=== PATIENT | male | born 1965 | race Caucasian/White ===

== ENCOUNTER 2018-09-11 16:26 | Inpatient (IN) | payer MEDICAID, MEDICARE ==
[2018-09-11] MEDS ORDERED: Sodium Chloride 0.9% 10 ML Syringe FLUSH PRN (16:35)
--- NOTE | 2018-09-11 16:48 | EDM.PDOCBH ---
ED HPI GENERAL MEDICAL PROBLEM - General Chief Complaint: Drug or Alcohol Abuse Stated Complaint: [facility] Time Seen by Provider: 09/11/18 16:41 Source of Information: Reports: Patient History Limitations: Reports: No Limitations - History of Present Illness INITIAL COMMENTS - FREE TEXT/NARRATIVE: Patient is a 53-year-old male who presents the ED complaining of alcohol abuse wanting alcohol treatment. Patient states he consumed 2x 40 ounce beers today. His last drink was half hour ago. Had spoken with his human services case manager with instructions to come to the ED to be admitted for inpatient treatment. Patient normally drinks beer and on occasion consumes vodka. He has been treated 5 times inpatient for alcohol. In addition he does smoke marijuana on a frequent basis. He has a history of schizoaffective disorder and is on Klonopin and Remeron. He denies any hallucinations, suicidal ideations, and/or any homicidal ideations. He has not ingested any medications inappropriately. Last treatment was 1.5 years ago at [facility]. Patient has been consuming alcohol for the past 28 years. He smokes approximately one pack per day for 28 years as well. He carries a history of anxiety and depression as well as Marfan syndrome and is on permanent disability since the age of 25. 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 - Related Data Allergies Allergy/AdvReac Type Severity Reaction Status Date / Time No Known Allergies Allergy Verified 09/11/18 19:04 Home Meds: Home Meds ClonazePAM [KlonoPIN] 0.5 mg PO BID 09/11/18 [History] DULoxetine HCl [Cymbalta] 60 mg PO DAILY 09/11/18 [History] FLUoxetine HCl [Fluoxetine HCl] 40 mg PO DAILY 09/11/18 [History] Fenofibrate,Micronized [Fenofibrate] 134 mg PO DAILY 09/11/18 [History] Levothyroxine [Synthroid] 50 mcg PO DAILY 09/11/18 [History] Lurasidone HCl [Latuda] 60 mg PO DAILY 09/11/18 [History] Meloxicam [Mobic] 15 mg PO DAILY 09/11/18 [History] Mirtazapine [Remeron] 30 mg PO BEDTIME 09/11/18 [History] Naltrexone 50 mg PO DAILY 09/11/18 [History] OLANZapine [Olanzapine] 30 mg PO BEDTIME 09/11/18 [History] Omeprazole Magnesium [Prilosec Otc] 20 mg PO DAILY 09/11/18 [History] busPIRone [Buspar] 15 mg PO BID 09/11/18 [History] cloNIDine [Catapres] 0.1 mg PO BEDTIME 09/11/18 [History] traZODone HCl [Trazodone HCl] 150 mg PO BEDTIME 09/11/18 [History] Past Medical History Respiratory History: Reports: Other (See Below) Other Respiratory History: emphysema Musculoskeletal History: Reports: Other (See Below) Other Musculoskeletal History: cervical neck surgery Psychiatric History: Reports: Anxiety, Depression - Past Surgical History GI Surgical History: Reports: Cholecystectomy Musculoskeletal Surgical History: Reports: Other (See Below) Other Musculoskeletal Surgeries/Procedures:: marfins syndrome Social & Family History - Tobacco Use Smoking Status *Q: Current Every Day Smoker Years of Tobacco use: 28 Packs/Tins Daily: 1 - Caffeine Use Caffeine Use: Reports: Coffee - Recreational Drug Use Recreational Drug Type: Reports: Marijuana/Hashish ED ROS GENERAL - Review of Systems Review Of Systems: ROS reveals no pertinent complaints other than HPI. ED EXAM, BEHAVIORAL HEALTH - Physical Exam Exam: See Below Exam Limited By: Intoxication General Appearance: Alert, WD/WN, No Apparent Distress Eye Exam: Bilateral Eye: EOMI, Normal Inspection, Nystagmus (horizontal), PERRL Ears: Hearing Grossly Normal Nose: Normal Inspection Throat/Mouth: Normal Inspection, Normal Oropharynx, Normal Voice, No Airway Compromise Head: Atraumatic, Normocephalic Neck: Normal Inspection, Supple Respiratory/Chest: No Respiratory Distress, Lungs Clear, Normal Breath Sounds, No Accessory Muscle Use, Chest Non-Tender Cardiovascular: Normal Peripheral Pulses, Regular Rate, Rhythm, No Murmur ( obvious) GI/Abdominal: Normal Bowel Sounds, Soft, Non-Tender, No Organomegaly, No Distention Extremities: Normal Inspection, Normal Range of Motion, Non-Tender, No Pedal Edema Neurological: Alert, Normal Mood/Affect, CN II-XII Intact, Normal Cognition, No Motor/Sensory Deficits, Oriented x 3 Psychiatric: Alert, Normal Affect, Normal Cognition, Normal Mood, Oriented. No : Depressed Mood, Flat Affect, Incoherent, Restless, Tearful, Agitated, Disoriented, Inattentive, Non-Communicative, Poor Eye Contact, Uncooperative, Withdrawn, Flight of Ideas, Homicidal Thoughts, Phobic, Latter-Day Delusions, Suicidal Plan, Suicidal Thoughts, Tangential Thoughts, Visual Hallucinations, Grandiose Thoughts, Pressured Speech, Paranoid Thoughts, Threatening Behavior Skin Exam: Warm, Dry, Intact, Normal color, No rash COURSE, BEHAVIORAL HEALTH COMP - Course Vital Signs: Last Vital Signs Temp 97.5 F 09/11/18 19:00 Pulse 81 09/11/18 19:00 Resp 19 09/11/18 19:00 BP 106/73 09/11/18 20:15 Pulse Ox 93 L 09/11/18 19:00 Orders, Labs, Meds: Active Orders 24 hr Category Date Time Status Peripheral IV Care [RC] Q2HR Care 09/11/18 16:35 Active Sodium Chloride 0.9% [Saline Flush] Med 09/11/18 16:35 Active 10 ml FLUSH ASDIRECTED PRN Peripheral IV Insertion Adult [OM.PC] Routine Oth 09/11/18 16:35 Ordered Medication Orders Clonazepam (Klonopin) 0.5 mg PO BID [facility] Last Admin: 09/11/18 20:15 Dose: 0.5 mg Clonidine HCl (Catapres) 0.1 mg PO BEDTIME [facility] Last Admin: 09/11/18 20:15 Dose: 0.1 mg Duloxetine HCl (Cymbalta) 60 mg PO DAILY [facility] Enoxaparin Sodium (Lovenox) 40 mg SUBCUT DAILY [facility] Fluoxetine HCl (Prozac) 40 mg PO DAILY [facility] Dextrose/Sodium Chloride (Dextrose 5%-Normal Saline) 1,000 mls @ 125 mls/hr IV ASDIRECTED [facility] Last Admin: 09/11/18 20:15 Dose: 125 mls/hr Levothyroxine Sodium (Synthroid) 50 mcg PO ACBREAKFAST [facility] Miscellaneous Information (Remove Patch) 1 ea TRDERM DAILY [facility] Nicotine (Habitrol) 21 mg TRDERM DAILY [facility] Non-Formulary Medication (Lurasidone Hcl [Latuda]) 60 mg PO DAILY [facility] Olanzapine (Zyprexa) 30 mg PO BEDTIME [facility] Last Admin: 09/11/18 20:15 Dose: 30 mg Sodium Chloride (Saline Flush) 10 ml FLUSH ASDIRECTED PRN PRN Reason: Keep Vein Open Last Admin: 09/11/18 17:00 Dose: 10 ml Trazodone HCl (Trazodone) 150 mg PO BEDTIME [facility] Last Admin: 09/11/18 20:17 Dose: 150 mg Laboratory Tests 09/11/18 09/11/18 09/11/18 Range/Units 17:00 17:00 17:00 WBC 7.40 (4.23-9.07) K/mm3 RBC 4.74 (4.63-6.08) M/mm3 Hgb 13.6 L (13.7-17.5) gm/L Hct 41.6 (40.1-51.0) % MCV 87.8 (79.0-92.2) fl MCH 28.7 (25.7-32.2) pg MCHC 32.7 (32.2-35.5) g/dl RDW Std Deviation 49.3 H (35.1-43.9) fL Plt Count 227 (163-337) K/mm3 MPV 11.2 (9.4-12.3) fl Neutrophils % (Manual) 59 (40-60) % Band Neutrophils % 0 (0-10) % Lymphocytes % (Manual) 26 (20-40) % Atypical Lymphs % 0 % Monocytes % (Manual) 11 H (2-10) % Eosinophils % (Manual) 4 (0.8-7.0) % Basophils % (Manual) 0 L (0.2-1.2) Platelet Estimate Adequate RBC Morph Comment Normal PT 10.3 (9.5-12.1) SECONDS INR 0.94 Sodium (136-145) mEq/L Potassium (3.5-5.1) mEq/L Chloride (98-107) mEq/L Carbon Dioxide (21-32) mEq/L Anion Gap (5-15) BUN (7-18) mg/dL Creatinine (0.7-1.3) mg/dL Est Cr Clr Drug Dosing mL/min Estimated GFR (MDRD) (>60) mL/min BUN/Creatinine Ratio (14-18) Glucose (74-106) mg/dL Calcium (8.5-10.1) mg/dL Total Bilirubin (0.2-1.0) mg/dL AST (15-37) U/L ALT (16-63) U/L Alkaline Phosphatase (46-116) U/L Total Protein (6.4-8.2) g/dl Albumin (3.4-5.0) g/dl Globulin gm/dL Albumin/Globulin Ratio (1-2) Lipase (73-393) U/L TSH 3rd Generation (0.358-3.74) uIU/mL Urine Color (Yellow) Urine Appearance (Clear) Urine pH (5.0-8.0) Ur Specific [place] (1.005-1.030) Urine Protein (Negative) Urine Glucose (UA) (Negative) Urine Ketones (Negative) Urine Occult Blood (Negative) Urine Nitrite (Negative) Urine Bilirubin (Negative) Urine Urobilinogen (0.2-1.0) Ur Leukocyte Esterase (Negative) Urine RBC (0-5) /hpf Urine WBC (0-5) /hpf Ur Epithelial Cells (0-5) /hpf Urine Bacteria (FEW) /hpf Urine Mucus (FEW) /hpf Salicylates (2.8-20) mg/dL Urine Opiates Screen Negative (BOFGWM=630) Ur Buprenorphine Scrn Negative (CUTOFF=10) Ur Oxycodone Screen Negative (MFG9TB=440) Urine Methadone Screen Negative (GPF9DL=565) Ur Propoxyphene Screen Negative (KDCJTY=729) Acetaminophen (10-30) ug/mL Ur Barbiturates Screen Negative (PTLJKX=367) Ur Tricyclics Screen Negative (IGMMYD=129) Ur Phencyclidine Scrn Negative (CUTOFF=25) Ur Amphetamine Screen Negative (RKFJFC=360) U Methamphetamines Scrn Negative (TSRYZQ=079) U Benzodiazepines Scrn Negative (ZNNFNX=079) U Cocaine Metab Screen Negative (KJZRTP=078) U Marijuana (THC) Screen Negative (CUTOFF=50) Ethyl Alcohol (0.00) gm% 09/11/18 09/11/18 09/11/18 Range/Units 17:00 17:00 17:00 WBC (4.23-9.07) K/mm3 RBC (4.63-6.08) M/mm3 Hgb (13.7-17.5) gm/L Hct (40.1-51.0) % MCV (79.0-92.2) fl MCH (25.7-32.2) pg MCHC (32.2-35.5) g/dl RDW Std Deviation (35.1-43.9) fL Plt Count (163-337) K/mm3 MPV (9.4-12.3) fl Neutrophils % (Manual) (40-60) % Band Neutrophils % (0-10) % Lymphocytes % (Manual) (20-40) % Atypical Lymphs % % Monocytes % (Manual) (2-10) % Eosinophils % (Manual) (0.8-7.0) % Basophils % (Manual) (0.2-1.2) Platelet Estimate RBC Morph Comment PT (9.5-12.1) SECONDS INR Sodium 139 (136-145) mEq/L Potassium 3.7 (3.5-5.1) mEq/L Chloride 102 (98-107) mEq/L Carbon Dioxide 24 (21-32) mEq/L Anion Gap 16.7 H (5-15) BUN 14 (7-18) mg/dL Creatinine 1.1 (0.7-1.3) mg/dL Est Cr Clr Drug Dosing 84.61 mL/min Estimated GFR (MDRD) > 60 (>60) mL/min BUN/Creatinine Ratio 12.7 L (14-18) Glucose 91 (74-106) mg/dL Calcium 8.7 (8.5-10.1) mg/dL Total Bilirubin 0.2 (0.2-1.0) mg/dL AST 27 (15-37) U/L ALT 33 (16-63) U/L Alkaline Phosphatase 91 (46-116) U/L Total Protein 7.3 (6.4-8.2) g/dl Albumin 3.7 (3.4-5.0) g/dl Globulin 3.6 gm/dL Albumin/Globulin Ratio 1.0 (1-2) Lipase 164 (73-393) U/L TSH 3rd Generation 1.454 (0.358-3.74) uIU/mL Urine Color Yellow (Yellow) Urine Appearance Clear (Clear) Urine pH 6.5 (5.0-8.0) Ur Specific [place] <=1.005 (1.005-1.030) Urine Protein Negative (Negative) Urine Glucose (UA) Negative (Negative) Urine Ketones Negative (Negative) Urine Occult Blood Negative (Negative) Urine Nitrite Negative (Negative) Urine Bilirubin Negative (Negative) Urine Urobilinogen 0.2 (0.2-1.0) Ur Leukocyte Esterase Negative (Negative) Urine RBC 0-5 (0-5) /hpf Urine WBC 0-5 (0-5) /hpf Ur Epithelial Cells 0-5 (0-5) /hpf Urine Bacteria Few (FEW) /hpf Urine Mucus Few (FEW) /hpf Salicylates 3.5 (2.8-20) mg/dL Urine Opiates Screen (KZWNMS=269) Ur Buprenorphine Scrn (CUTOFF=10) Ur Oxycodone Screen (DZM7MT=993) Urine Methadone Screen (CDL1IL=241) Ur Propoxyphene Screen (VAIZQF=541) Acetaminophen 0 L (10-30) ug/mL Ur Barbiturates Screen (QWDLKR=197) Ur Tricyclics Screen (FZBGSL=990) Ur Phencyclidine Scrn (CUTOFF=25) Ur Amphetamine Screen (UDORHP=498) U Methamphetamines Scrn (IGVRVN=432) U Benzodiazepines Scrn (CDFCFY=110) U Cocaine Metab Screen (LTIEKZ=026) U Marijuana (THC) Screen (CUTOFF=50) Ethyl Alcohol 0.24 (0.00) gm% Medications Generic Name Dose Route Start Last Admin Trade Name Freq PRN Reason Stop Dose Admin Clonazepam 0.5 mg 09/11/18 21:00 09/11/18 20:15 Klonopin PO 0.5 mg BID [facility] Administration Clonidine HCl 0.1 mg 09/11/18 21:00 09/11/18 20:15 Catapres PO 0.1 mg BEDTIME [facility] Administration Duloxetine HCl 60 mg 09/12/18 09:00 Cymbalta PO DAILY [facility] Enoxaparin Sodium 40 mg 09/12/18 09:00 Lovenox SUBCUT DAILY [facility] Fluoxetine HCl 40 mg 09/12/18 09:00 Prozac PO DAILY [facility] Dextrose/Sodium Chloride 1,000 mls @ 125 mls/hr 09/11/18 19:45 09/11/18 20:15 Dextrose 5%-Normal Saline IV 125 mls/hr ASDIRECTED [facility] Administration Levothyroxine Sodium 50 mcg 09/12/18 06:00 Synthroid PO ACBREAKFAST [facility] Miscellaneous Information 1 ea 09/12/18 09:00 Remove Patch TRDERM DAILY [facility] Nicotine 21 mg 09/12/18 09:00 Habitrol TRDERM DAILY [facility] Non-Formulary Medication 60 mg 09/12/18 09:00 Lurasidone Hcl [Latuda] PO DAILY [facility] Olanzapine 30 mg 09/11/18 21:00 09/11/18 20:15 Zyprexa PO 30 mg BEDTIME [facility] Administration Sodium Chloride 10 ml 09/11/18 16:35 09/11/18 17:00 Saline Flush FLUSH 10 ml ASDIRECTED PRN Administration Keep Vein Open Trazodone HCl 150 mg 09/11/18 21:00 09/11/18 20:17 Trazodone PO 150 mg BEDTIME [facility] Administration Discontinued Medications Generic Name Dose Route Start Last Admin Trade Name Rickie PRN Reason Stop Dose Admin Folic Acid 1 mg 09/11/18 16:53 09/11/18 17:10 Folic Acid PO 09/11/18 16:54 1 mg ONETIME ONE Administration Sodium Chloride 1,000 mls @ 250 mls/hr 09/11/18 17:00 09/11/18 17:10 Normal Saline IV 250 mls/hr ASDIRECTED [facility] Administration Nicotine 21 mg 09/11/18 18:07 09/11/18 18:23 Habitrol TRDERM 09/11/18 18:08 21 mg ONETIME ONE Administration Thiamine HCl 100 mg 09/11/18 16:53 09/11/18 17:04 Vitamin B-1 IVPUSH 09/11/18 16:54 100 mg ONETIME ONE Administration Re-Assessment/Re-Exam: IV established with normal saline, thiamine 100 mg IV, and folic acid by mouth. Initial labs and studies include: CBC, CMP, urine drug screen, lipase, INR, TSH , UA, see mid-level, serum EtOH, salicylate level, and EKG. EKG: SR rate of [address] changes noted. 1645 I was advised by the railroad dining car stewardess that [facility] has a bed available. I will not be able to medically clear patient for [facility]. I will look at admitting patient. Labs reviewed: CBC and chemistry panel revealed no concerning findings. UA negative. Toxicology was negative. Acetaminophen 0. Salicylate is pending. Serum EtOH 0.24. Lipase 164. TSH 1.454. INR 0.94. 1810 I have discussed the patient with Dr. Fox. He has agreed to admit the patient. Departure - Departure Time of Disposition: 18:13 Disposition: Admitted As Inpatient 68 Condition: Good Clinical Impression: Alcohol abuse - Discharge Information - My Orders Last 24 Hours: My Active Orders 09/11/18 16:35 Peripheral IV Care [RC] Q2HR Sodium Chloride 0.9% [Saline Flush] 10 ml FLUSH ASDIRECTED PRN Peripheral IV Insertion Adult [OM.PC] Routine - Assessment/Plan Last 24 Hours: My Active Orders 09/11/18 16:35 Peripheral IV Care [RC] Q2HR Sodium Chloride 0.9% [Saline Flush] 10 ml FLUSH ASDIRECTED PRN Peripheral IV Insertion Adult [OM.PC] Routine
[2018-09-11] MEDS ORDERED: Thiamine 200 MG/2 ML MDV IVPUSH ONE (16:53)
[2018-09-11] MEDS ORDERED: Folic Acid 1 MG Tab PO ONE (16:53)
[2018-09-11] MEDS ORDERED: Sodium Chloride 0.9% 1,000 ML IV SCH (17:00)
[2018-09-11 17:55] LABS: ACETAMINOPHEN 0 ug/mL (10-30)
[2018-09-11] MEDS ORDERED: Nicotine 21 MG/24 Hr Patch TRDERM ONE (18:07)
--- NOTE | 2018-09-11 19:39 | PCM.HP ---
H&P History of Present Illness - General Date of Service: 09/11/18 Admit Problem/Dx: Admission Diagnosis/Problem Admission Diagnosis/Problem Alcoholism - History of Present Illness Initial Comments - Free Text/Narative: 53 yo WM with h/o anxiety, depression, alcoholism admitted through ED with inebriation, requesting admission for "detox". Binge drinks 2-3 times a month. Admitted for further treatment. - Related Data Allergies/Adverse Reactions: Allergies Allergy/AdvReac Type Severity Reaction Status Date / Time No Known Allergies Allergy Verified 09/11/18 19:04 Home Medications: Home Meds ClonazePAM [KlonoPIN] 0.5 mg PO BID 09/11/18 [History] DULoxetine HCl [Cymbalta] 60 mg PO DAILY 09/11/18 [History] FLUoxetine HCl [Fluoxetine HCl] 40 mg PO DAILY 09/11/18 [History] Fenofibrate,Micronized [Fenofibrate] 134 mg PO DAILY 09/11/18 [History] Levothyroxine [Synthroid] 50 mcg PO DAILY 09/11/18 [History] Lurasidone HCl [Latuda] 60 mg PO DAILY 09/11/18 [History] Meloxicam [Mobic] 15 mg PO DAILY 09/11/18 [History] Mirtazapine [Remeron] 30 mg PO BEDTIME 09/11/18 [History] Naltrexone 50 mg PO DAILY 09/11/18 [History] OLANZapine [Olanzapine] 30 mg PO BEDTIME 09/11/18 [History] Omeprazole Magnesium [Prilosec Otc] 20 mg PO DAILY 09/11/18 [History] busPIRone [Buspar] 15 mg PO BID 09/11/18 [History] cloNIDine [Catapres] 0.1 mg PO BEDTIME 09/11/18 [History] traZODone HCl [Trazodone HCl] 150 mg PO BEDTIME 09/11/18 [History] Past Medical History Respiratory History: Reports: Other (See Below) Other Respiratory History: emphysema Musculoskeletal History: Reports: Other (See Below) Other Musculoskeletal History: cervical neck surgery Psychiatric History: Reports: Anxiety, Depression - Past Surgical History GI Surgical History: Reports: Cholecystectomy Musculoskeletal Surgical History: Reports: Other (See Below) Other Musculoskeletal Surgeries/Procedures:: marfins syndrome Social & Family History - Tobacco Use Smoking Status *Q: Current Every Day Smoker Years of Tobacco use: 28 Packs/Tins Daily: 1 - Caffeine Use Caffeine Use: Reports: Coffee - Recreational Drug Use Recreational Drug Type: Reports: Marijuana/Hashish H&P Review of Systems - Review of Systems: Review Of Systems: See Below General: Denies: Fever, Chills HEENT: Denies: Dysphasia, Headaches Pulmonary: Denies: Shortness of Breath, Cough, Hemoptysis Cardiovascular: Denies: Chest Pain, Palpitations Gastrointestinal: Denies: Abdominal Pain, Diarrhea, Nausea Genitourinary: Denies: Dysuria, Frequency Skin: Denies: Cyanosis, Jaundice Psychiatric: Reports: Depression, Anxiety Hematologic/Lymphatic: Denies: Easy Bleeding, Easy Bruising Exam - Exam Exam: See Below - Vital Signs Vital Signs: Last Vital Signs Temp 97.5 F 09/11/18 19:00 Pulse 81 09/11/18 19:00 Resp 19 09/11/18 19:00 BP 123/76 09/11/18 19:00 Pulse Ox 93 L 09/11/18 19:00 Weight: 165 lb 9.6 oz - Exam Quality Assessment: No: Supplemental Oxygen General: Alert, Oriented, Cooperative, Lethargic HEENT: Conjunctiva Clear, EOMI Neck: Supple, Trachea Midline Lungs: Clear to Auscultation, Normal Respiratory Effort Cardiovascular: Regular Rate, Regular Rhythm GI/Abdominal Exam: Soft, Non-Tender Extremities: Non-Tender, Pedal Edema Peripheral Pulses: 2+: Dorsalis Pedis (L), Dorsalis Pedis (R) Skin: Warm, Dry Neuro Extensive - Mental Status: No: Normal Cognition, Disorientation to Time, Inattentive Neuro Extensive - Motor, Sensory, Reflexes: CN II-XII Intact, Normal Gait. No: Motor/Sensory Deficits - Patient Data Lab Results Last 24 hrs: Laboratory Results - last 24 hr 09/11/18 09/11/18 09/11/18 Range/Units 17:00 17:00 17:00 WBC 7.40 (4.23-9.07) K/mm3 RBC 4.74 (4.63-6.08) M/mm3 Hgb 13.6 L (13.7-17.5) gm/L Hct 41.6 (40.1-51.0) % MCV 87.8 (79.0-92.2) fl MCH 28.7 (25.7-32.2) pg MCHC 32.7 (32.2-35.5) g/dl RDW Std Deviation 49.3 H (35.1-43.9) fL Plt Count 227 (163-337) K/mm3 MPV 11.2 (9.4-12.3) fl Neutrophils % (Manual) 59 (40-60) % Band Neutrophils % 0 (0-10) % Lymphocytes % (Manual) 26 (20-40) % Atypical Lymphs % 0 % Monocytes % (Manual) 11 H (2-10) % Eosinophils % (Manual) 4 (0.8-7.0) % Basophils % (Manual) 0 L (0.2-1.2) Platelet Estimate Adequate RBC Morph Comment Normal PT 10.3 (9.5-12.1) SECONDS INR 0.94 Sodium (136-145) mEq/L Potassium (3.5-5.1) mEq/L Chloride (98-107) mEq/L Carbon Dioxide (21-32) mEq/L Anion Gap (5-15) BUN (7-18) mg/dL Creatinine (0.7-1.3) mg/dL Est Cr Clr Drug Dosing mL/min Estimated GFR (MDRD) (>60) mL/min BUN/Creatinine Ratio (14-18) Glucose (74-106) mg/dL Calcium (8.5-10.1) mg/dL Total Bilirubin (0.2-1.0) mg/dL AST (15-37) U/L ALT (16-63) U/L Alkaline Phosphatase (46-116) U/L Total Protein (6.4-8.2) g/dl Albumin (3.4-5.0) g/dl Globulin gm/dL Albumin/Globulin Ratio (1-2) Lipase (73-393) U/L TSH 3rd Generation (0.358-3.74) uIU/mL Urine Color (Yellow) Urine Appearance (Clear) Urine pH (5.0-8.0) Ur Specific Cassatt (1.005-1.030) Urine Protein (Negative) Urine Glucose (UA) (Negative) Urine Ketones (Negative) Urine Occult Blood (Negative) Urine Nitrite (Negative) Urine Bilirubin (Negative) Urine Urobilinogen (0.2-1.0) Ur Leukocyte Esterase (Negative) Urine RBC (0-5) /hpf Urine WBC (0-5) /hpf Ur Epithelial Cells (0-5) /hpf Urine Bacteria (FEW) /hpf Urine Mucus (FEW) /hpf Salicylates (2.8-20) mg/dL Urine Opiates Screen Negative (UETREF=095) Ur Buprenorphine Scrn Negative (CUTOFF=10) Ur Oxycodone Screen Negative (FZI9FX=989) Urine Methadone Screen Negative (MRZ0LH=761) Ur Propoxyphene Screen Negative (XFMGDB=010) Acetaminophen (10-30) ug/mL Ur Barbiturates Screen Negative (ICIOVE=864) Ur Tricyclics Screen Negative (DAKWKB=280) Ur Phencyclidine Scrn Negative (CUTOFF=25) Ur Amphetamine Screen Negative (IAMOTR=826) U Methamphetamines Scrn Negative (BKPSOX=110) U Benzodiazepines Scrn Negative (VURTCY=139) U Cocaine Metab Screen Negative (XFQXSY=035) U Marijuana (THC) Screen Negative (CUTOFF=50) Ethyl Alcohol (0.00) gm% 09/11/18 09/11/18 09/11/18 Range/Units 17:00 17:00 17:00 WBC (4.23-9.07) K/mm3 RBC (4.63-6.08) M/mm3 Hgb (13.7-17.5) gm/L Hct (40.1-51.0) % MCV (79.0-92.2) fl MCH (25.7-32.2) pg MCHC (32.2-35.5) g/dl RDW Std Deviation (35.1-43.9) fL Plt Count (163-337) K/mm3 MPV (9.4-12.3) fl Neutrophils % (Manual) (40-60) % Band Neutrophils % (0-10) % Lymphocytes % (Manual) (20-40) % Atypical Lymphs % % Monocytes % (Manual) (2-10) % Eosinophils % (Manual) (0.8-7.0) % Basophils % (Manual) (0.2-1.2) Platelet Estimate RBC Morph Comment PT (9.5-12.1) SECONDS INR Sodium 139 (136-145) mEq/L Potassium 3.7 (3.5-5.1) mEq/L Chloride 102 (98-107) mEq/L Carbon Dioxide 24 (21-32) mEq/L Anion Gap 16.7 H (5-15) BUN 14 (7-18) mg/dL Creatinine 1.1 (0.7-1.3) mg/dL Est Cr Clr Drug Dosing 84.61 mL/min Estimated GFR (MDRD) > 60 (>60) mL/min BUN/Creatinine Ratio 12.7 L (14-18) Glucose 91 (74-106) mg/dL Calcium 8.7 (8.5-10.1) mg/dL Total Bilirubin 0.2 (0.2-1.0) mg/dL AST 27 (15-37) U/L ALT 33 (16-63) U/L Alkaline Phosphatase 91 (46-116) U/L Total Protein 7.3 (6.4-8.2) g/dl Albumin 3.7 (3.4-5.0) g/dl Globulin 3.6 gm/dL Albumin/Globulin Ratio 1.0 (1-2) Lipase 164 (73-393) U/L TSH 3rd Generation 1.454 (0.358-3.74) uIU/mL Urine Color Yellow (Yellow) Urine Appearance Clear (Clear) Urine pH 6.5 (5.0-8.0) Ur Specific Cassatt <=1.005 (1.005-1.030) Urine Protein Negative (Negative) Urine Glucose (UA) Negative (Negative) Urine Ketones Negative (Negative) Urine Occult Blood Negative (Negative) Urine Nitrite Negative (Negative) Urine Bilirubin Negative (Negative) Urine Urobilinogen 0.2 (0.2-1.0) Ur Leukocyte Esterase Negative (Negative) Urine RBC 0-5 (0-5) /hpf Urine WBC 0-5 (0-5) /hpf Ur Epithelial Cells 0-5 (0-5) /hpf Urine Bacteria Few (FEW) /hpf Urine Mucus Few (FEW) /hpf Salicylates 3.5 (2.8-20) mg/dL Urine Opiates Screen (AMYYBD=965) Ur Buprenorphine Scrn (CUTOFF=10) Ur Oxycodone Screen (JQJ5XA=603) Urine Methadone Screen (CXH1UP=608) Ur Propoxyphene Screen (JYMDXD=762) Acetaminophen 0 L (10-30) ug/mL Ur Barbiturates Screen (UOEXRT=468) Ur Tricyclics Screen (XLDSGY=320) Ur Phencyclidine Scrn (CUTOFF=25) Ur Amphetamine Screen (EMKPKA=133) U Methamphetamines Scrn (DUCYUL=177) U Benzodiazepines Scrn (ODXNLE=720) U Cocaine Metab Screen (TBKVNS=535) U Marijuana (THC) Screen (CUTOFF=50) Ethyl Alcohol 0.24 (0.00) gm% Result Diagrams: 09/11/18 17:00 09/11/18 17:00 - Problem List (1) Alcohol abuse SNOMED Code(s): 29605809 ICD Code: F10.10 - ALCOHOL ABUSE, UNCOMPLICATED Status: Acute Current Visit: No (2) Depression SNOMED Code(s): 24945142 ICD Code: F32.9 - MAJOR DEPRESSIVE DISORDER, SINGLE EPISODE, UNSPECIFIED Status: Acute Current Visit: Yes Qualifiers: Depression Type: major depressive disorder Major depression recurrence: recurrent Active/Remission status: currently active Major depression episode severity: severe Psychotic features: with psychotic features Qualified Code(s): F33.3 - Major depressive disorder, recurrent, severe with psychotic symptoms Problem List Initiated/Reviewed/Updated: Yes Orders Last 24hrs: Active Orders 24 hr Category Date Time Status Admission Status [Patient Status] [ADT] Routine ADT 09/11/18 18:16 Active Bedrest Bathroom Privileges [RC] ASDIRECTED Care 09/11/18 19:30 Ordered Cardiac Monitoring [RC] CONTINUOUS Care 09/11/18 19:30 Ordered Height and Weight [RC] DAILY Care 09/11/18 19:30 Ordered Peripheral IV Care [RC] Q2HR Care 09/11/18 16:35 Active VTE/DVT Education [RC] PER UNIT ROUTINE Care 09/11/18 19:30 Ordered Vital Signs [RC] Q4H Care 09/11/18 19:30 Ordered Regular Diet [DIET] Diet 09/11/18 Breakfast Ordered ClonazePAM [KlonoPIN] Med 09/11/18 21:00 Ordered 0.5 mg PO BID DULoxetine HCl Med 09/12/18 09:00 Ordered 60 mg PO DAILY Enoxaparin [Lovenox] Med 09/12/18 09:00 Ordered 40 mg SUBCUT DAILY FLUoxetine HCl [Fluoxetine HCl] Med 09/12/18 09:00 Ordered 40 mg PO DAILY Levothyroxine [Synthroid] Med 09/12/18 09:00 Ordered 50 mcg PO DAILY Lurasidone HCl [Latuda] Med 09/12/18 09:00 Ordered 60 mg PO DAILY Nicotine [Habitrol] Med 09/12/18 09:00 Ordered 21 mg TRDERM DAILY OLANZapine [Olanzapine] Med 09/11/18 21:00 Ordered 30 mg PO BEDTIME Sodium Chloride 0.9% [Normal Saline] 1,000 ml Med 09/11/18 17:00 Active IV ASDIRECTED Sodium Chloride 0.9% [Saline Flush] Med 09/11/18 16:35 Active 10 ml FLUSH ASDIRECTED PRN cloNIDine [Catapres] Med 09/11/18 21:00 Ordered 0.1 mg PO BEDTIME traZODone HCl [Trazodone HCl] Med 09/11/18 21:00 Ordered 150 mg PO BEDTIME Peripheral IV Insertion Adult [OM.PC] Routine Oth 09/11/18 16:35 Ordered Resuscitation Status Routine Resus Stat 09/11/18 19:30 Ordered Medication Orders Clonazepam (Klonopin) 0.5 mg PO BID BREN Clonidine HCl (Catapres) 0.1 mg PO BEDTIME BREN Enoxaparin Sodium (Lovenox) 40 mg SUBCUT DAILY BREN Sodium Chloride (Normal Saline) 1,000 mls @ 250 mls/hr IV ASDIRECTED BREN Last Admin: 09/11/18 17:10 Dose: 250 mls/hr Levothyroxine Sodium (Synthroid) 50 mcg PO DAILY BREN Nicotine (Habitrol) 21 mg TRDERM DAILY BREN Non-Formulary Medication (Duloxetine Hcl) 60 mg PO DAILY BREN Non-Formulary Medication (Fluoxetine Hcl [Fluoxetine Hcl]) 40 mg PO DAILY BREN Non-Formulary Medication (Lurasidone Hcl [Latuda]) 60 mg PO DAILY BREN Non-Formulary Medication (Olanzapine [Olanzapine]) 30 mg PO BEDTIME BREN Non-Formulary Medication (Trazodone Hcl [Trazodone Hcl]) 150 mg PO BEDTIME BREN Sodium Chloride (Saline Flush) 10 ml FLUSH ASDIRECTED PRN PRN Reason: Keep Vein Open Last Admin: 09/11/18 17:00 Dose: 10 ml Assessment/Plan Comment:: 1. IVF, benzos, continue home RX. 2. Monitor electrolytes. 3. SS consult. 4. DVTP - LMWH.
[2018-09-11] MEDS: Dextrose 5%-0.9% NaCl 1,000 ML IV SCH (20:15)
[2018-09-11] MEDS: ClonazePAM 0.5 MG Tab PO SCH (20:15)
[2018-09-11] MEDS ORDERED: traZODone 50 MG Tab PO SCH (21:00)
[2018-09-11] MEDS ORDERED: cloNIDine 0.1 MG Tab PO SCH (21:00)
[2018-09-11] MEDS ORDERED: OLANZapine 5 MG Tab PO SCH (21:00)
[2018-09-12] MEDS: Dextrose 5%-0.9% NaCl 1,000 ML IV SCH (04:43)
[2018-09-12] MEDS ORDERED: Levothyroxine 50 MCG Tab PO SCH (06:00)
[2018-09-12] MEDS ORDERED: Magnesium Sulfate/Water 2 GM in Premix Bag 1 BAG IV ONE (07:18)
[2018-09-12] MEDS: ClonazePAM 0.5 MG Tab PO SCH (08:14)
[2018-09-12] MEDS ORDERED: Lurasidone Hcl [Latuda] 60 MG PO SCH (09:00)
[2018-09-12] MEDS ORDERED: Nicotine 21 MG/24 Hr Patch TRDERM SCH (09:00)
[2018-09-12] MEDS ORDERED: Enoxaparin 40 MG/0.4 ML Syringe SUBCUT SCH (09:00)
[2018-09-12] MEDS ORDERED: FLUoxetine 20 MG Cap PO SCH (09:00)
[2018-09-12] MEDS ORDERED: DULoxetine 30 MG Cap PO SCH (09:00)
--- NOTE | 2018-09-12 12:20 | PCM.DCSUM1 ---
Discharge Summary - Hospital Course Free Text/Narrative:: 53 yo WM with h/o anxiety, depression, alcoholism admitted through ED with inebriation, requesting admission for "detox". Binge drinks 2-3 times a month. Admitted for further treatment. 09/12/18, has no recollection of why he called an ambulance, wishes to go home, no withdrawal symptoms, counselor visited and follow up arranged. Being discharged in good condition. Recommendations: per patient, the only Rx that helped him to stay sober was Antabuse. He states that naltrexone has no effect and interferes with his pain control after spinal surgery. May benefit from discussion with the psychiatrist regarding Antabuse treatment on the next upcoming appointment. Diagnosis: Stroke: No - Discharge Data Discharge Date: 09/12/18 Discharge Disposition: Home, Self-Care 01 Condition: Good - Discharge Diagnosis/Problem(s) (1) Alcohol abuse SNOMED Code(s): 32748610 ICD Code: F10.10 - ALCOHOL ABUSE, UNCOMPLICATED Status: Acute Current Visit: No (2) Depression SNOMED Code(s): 23006120 ICD Code: F32.9 - MAJOR DEPRESSIVE DISORDER, SINGLE EPISODE, UNSPECIFIED Status: Acute Current Visit: Yes Qualifiers: Depression Type: major depressive disorder Major depression recurrence: recurrent Active/Remission status: currently active Major depression episode severity: severe Psychotic features: with psychotic features Qualified Code(s): F33.3 - Major depressive disorder, recurrent, severe with psychotic symptoms - Patient Instructions Diet: Heart Healthy Diet Activity: As Tolerated Showering/Bathing: May Shower - Discharge Plan *PRESCRIPTION DRUG MONITORING PROGRAM REVIEWED*: No *COPY OF PRESCRIPTION DRUG MONITORING REPORT IN PATIENT MIKY: No Home Medications: Home Meds DULoxetine HCl [Cymbalta] 60 mg PO DAILY 09/11/18 [History] FLUoxetine HCl [Fluoxetine HCl] 40 mg PO DAILY 09/11/18 [History] Fenofibrate,Micronized [Fenofibrate] 134 mg PO DAILY 09/11/18 [History] Levothyroxine [Synthroid] 50 mcg PO DAILY 09/11/18 [History] Lurasidone HCl [Latuda] 60 mg PO DAILY 09/11/18 [History] Meloxicam [Mobic] 15 mg PO DAILY 09/11/18 [History] Mirtazapine [Remeron] 30 mg PO BEDTIME 09/11/18 [History] Naltrexone 50 mg PO DAILY 09/11/18 [History] OLANZapine [Olanzapine] 30 mg PO BEDTIME 09/11/18 [History] Omeprazole Magnesium [Prilosec Otc] 20 mg PO DAILY 09/11/18 [History] busPIRone [Buspar] 15 mg PO BID 09/11/18 [History] cloNIDine [Catapres] 0.1 mg PO BEDTIME 09/11/18 [History] traZODone HCl [Trazodone HCl] 150 mg PO BEDTIME 09/11/18 [History] Patient's Own Medication [Ptom] 0 each PO DAILY each 09/12/18 [Rx] Referrals: Dallin Lance Jr, MD [Primary Care Provider] - - Discharge Summary/Plan Comment DC Time >30 min.: No - Patient Data Vitals - Most Recent: Last Vital Signs Temp 98 F 09/12/18 11:54 Pulse 92 09/12/18 11:54 Resp 19 09/12/18 11:54 BP 125/77 09/12/18 11:54 Pulse Ox 93 L 09/12/18 11:54 Weight - Most Recent: 165 lb 9.6 oz I&O - Last 24 hours: Intake & Output 09/12/18 09/12/18 09/12/18 03:59 11:59 19:59 Intake Total 1170 Balance 1170 Lab Results - Last 24 hrs: Laboratory Results - last 24 hr 09/11/18 09/11/18 09/11/18 Range/Units 17:00 17:00 17:00 WBC 7.40 (4.23-9.07) K/mm3 RBC 4.74 (4.63-6.08) M/mm3 Hgb 13.6 L (13.7-17.5) gm/L Hct 41.6 (40.1-51.0) % MCV 87.8 (79.0-92.2) fl MCH 28.7 (25.7-32.2) pg MCHC 32.7 (32.2-35.5) g/dl RDW Std Deviation 49.3 H (35.1-43.9) fL Plt Count 227 (163-337) K/mm3 MPV 11.2 (9.4-12.3) fl Neut % (Auto) (34.0-67.9) % Lymph % (Auto) (21.8-53.1) % [place] % (Auto) (5.3-12.2) % Eos % (Auto) (0.8-7.0) Baso % (Auto) (0.1-1.2) % Neut # (Auto) (1.78-5.38) K/mm3 Lymph # (Auto) (1.32-3.57) K/mm3 [place] # (Auto) (0.30-0.82) K/mm3 Eos # (Auto) (0.04-0.54) K/mm3 Baso # (Auto) (0.01-0.08) K/mm3 Neutrophils % (Manual) 59 (40-60) % Band Neutrophils % 0 (0-10) % Lymphocytes % (Manual) 26 (20-40) % Atypical Lymphs % 0 % Monocytes % (Manual) 11 H (2-10) % Eosinophils % (Manual) 4 (0.8-7.0) % Basophils % (Manual) 0 L (0.2-1.2) Platelet Estimate Adequate RBC Morph Comment Normal PT 10.3 (9.5-12.1) SECONDS INR 0.94 Sodium (136-145) mEq/L Potassium (3.5-5.1) mEq/L Chloride (98-107) mEq/L Carbon Dioxide (21-32) mEq/L Anion Gap (5-15) BUN (7-18) mg/dL Creatinine (0.7-1.3) mg/dL Est Cr Clr Drug Dosing mL/min Estimated GFR (MDRD) (>60) mL/min BUN/Creatinine Ratio (14-18) Glucose (74-106) mg/dL Calcium (8.5-10.1) mg/dL Phosphorus (2.6-4.7) mg/dL Magnesium (1.8-2.4) mg/dl Total Bilirubin (0.2-1.0) mg/dL AST (15-37) U/L ALT (16-63) U/L Alkaline Phosphatase (46-116) U/L Total Protein (6.4-8.2) g/dl Albumin (3.4-5.0) g/dl Globulin gm/dL Albumin/Globulin Ratio (1-2) Lipase (73-393) U/L TSH 3rd Generation (0.358-3.74) uIU/mL Urine Color (Yellow) Urine Appearance (Clear) Urine pH (5.0-8.0) Ur Specific [place] (1.005-1.030) Urine Protein (Negative) Urine Glucose (UA) (Negative) Urine Ketones (Negative) Urine Occult Blood (Negative) Urine Nitrite (Negative) Urine Bilirubin (Negative) Urine Urobilinogen (0.2-1.0) Ur Leukocyte Esterase (Negative) Urine RBC (0-5) /hpf Urine WBC (0-5) /hpf Ur Epithelial Cells (0-5) /hpf Urine Bacteria (FEW) /hpf Urine Mucus (FEW) /hpf Salicylates (2.8-20) mg/dL Urine Opiates Screen Negative (PCMPOC=899) Ur Buprenorphine Scrn Negative (CUTOFF=10) Ur Oxycodone Screen Negative (ISH6YH=175) Urine Methadone Screen Negative (SPV4LM=047) Ur Propoxyphene Screen Negative (WBQSGN=504) Acetaminophen (10-30) ug/mL Ur Barbiturates Screen Negative (RCMTMJ=637) Ur Tricyclics Screen Negative (NMVMHX=034) Ur Phencyclidine Scrn Negative (CUTOFF=25) Ur Amphetamine Screen Negative (AUZUJR=245) U Methamphetamines Scrn Negative (USSIFC=259) U Benzodiazepines Scrn Negative (ABDVYB=481) U Cocaine Metab Screen Negative (PBYODJ=185) U Marijuana (THC) Screen Negative (CUTOFF=50) Ethyl Alcohol (0.00) gm% 09/11/18 09/11/18 09/11/18 Range/Units 17:00 17:00 17:00 WBC (4.23-9.07) K/mm3 RBC (4.63-6.08) M/mm3 Hgb (13.7-17.5) gm/L Hct (40.1-51.0) % MCV (79.0-92.2) fl MCH (25.7-32.2) pg MCHC (32.2-35.5) g/dl RDW Std Deviation (35.1-43.9) fL Plt Count (163-337) K/mm3 MPV (9.4-12.3) fl Neut % (Auto) (34.0-67.9) % Lymph % (Auto) (21.8-53.1) % [place] % (Auto) (5.3-12.2) % Eos % (Auto) (0.8-7.0) Baso % (Auto) (0.1-1.2) % Neut # (Auto) (1.78-5.38) K/mm3 Lymph # (Auto) (1.32-3.57) K/mm3 [place] # (Auto) (0.30-0.82) K/mm3 Eos # (Auto) (0.04-0.54) K/mm3 Baso # (Auto) (0.01-0.08) K/mm3 Neutrophils % (Manual) (40-60) % Band Neutrophils % (0-10) % Lymphocytes % (Manual) (20-40) % Atypical Lymphs % % Monocytes % (Manual) (2-10) % Eosinophils % (Manual) (0.8-7.0) % Basophils % (Manual) (0.2-1.2) Platelet Estimate RBC Morph Comment PT (9.5-12.1) SECONDS INR Sodium 139 (136-145) mEq/L Potassium 3.7 (3.5-5.1) mEq/L Chloride 102 (98-107) mEq/L Carbon Dioxide 24 (21-32) mEq/L Anion Gap 16.7 H (5-15) BUN 14 (7-18) mg/dL Creatinine 1.1 (0.7-1.3) mg/dL Est Cr Clr Drug Dosing 84.61 mL/min Estimated GFR (MDRD) > 60 (>60) mL/min BUN/Creatinine Ratio 12.7 L (14-18) Glucose 91 (74-106) mg/dL Calcium 8.7 (8.5-10.1) mg/dL Phosphorus (2.6-4.7) mg/dL Magnesium (1.8-2.4) mg/dl Total Bilirubin 0.2 (0.2-1.0) mg/dL AST 27 (15-37) U/L ALT 33 (16-63) U/L Alkaline Phosphatase 91 (46-116) U/L Total Protein 7.3 (6.4-8.2) g/dl Albumin 3.7 (3.4-5.0) g/dl Globulin 3.6 gm/dL Albumin/Globulin Ratio 1.0 (1-2) Lipase 164 (73-393) U/L TSH 3rd Generation 1.454 (0.358-3.74) uIU/mL Urine Color Yellow (Yellow) Urine Appearance Clear (Clear) Urine pH 6.5 (5.0-8.0) Ur Specific [place] <=1.005 (1.005-1.030) Urine Protein Negative (Negative) Urine Glucose (UA) Negative (Negative) Urine Ketones Negative (Negative) Urine Occult Blood Negative (Negative) Urine Nitrite Negative (Negative) Urine Bilirubin Negative (Negative) Urine Urobilinogen 0.2 (0.2-1.0) Ur Leukocyte Esterase Negative (Negative) Urine RBC 0-5 (0-5) /hpf Urine WBC 0-5 (0-5) /hpf Ur Epithelial Cells 0-5 (0-5) /hpf Urine Bacteria Few (FEW) /hpf Urine Mucus Few (FEW) /hpf Salicylates 3.5 (2.8-20) mg/dL Urine Opiates Screen (MKHVLC=373) Ur Buprenorphine Scrn (CUTOFF=10) Ur Oxycodone Screen (YJL5XM=063) Urine Methadone Screen (GYE5LE=013) Ur Propoxyphene Screen (WANRWA=465) Acetaminophen 0 L (10-30) ug/mL Ur Barbiturates Screen (CKBNPO=679) Ur Tricyclics Screen (UZIOGQ=106) Ur Phencyclidine Scrn (CUTOFF=25) Ur Amphetamine Screen (VUMZAV=439) U Methamphetamines Scrn (BVJEIM=576) U Benzodiazepines Scrn (JVHPQN=032) U Cocaine Metab Screen (NGEFQL=787) U Marijuana (THC) Screen (CUTOFF=50) Ethyl Alcohol 0.24 (0.00) gm% 09/12/18 09/12/18 09/12/18 Range/Units 04:35 04:35 04:35 WBC 3.99 L (4.23-9.07) K/mm3 RBC 4.46 L (4.63-6.08) M/mm3 Hgb 12.8 L (13.7-17.5) gm/L Hct 39.7 L (40.1-51.0) % MCV 89.0 (79.0-92.2) fl MCH 28.7 (25.7-32.2) pg MCHC 32.2 (32.2-35.5) g/dl RDW Std Deviation 50.3 H (35.1-43.9) fL Plt Count 170 (163-337) K/mm3 MPV 11.4 (9.4-12.3) fl Neut % (Auto) 47.6 (34.0-67.9) % Lymph % (Auto) 28.6 (21.8-53.1) % [place] % (Auto) 14.0 H (5.3-12.2) % Eos % (Auto) 8.3 H (0.8-7.0) Baso % (Auto) 1.0 (0.1-1.2) % Neut # (Auto) 1.90 (1.78-5.38) K/mm3 Lymph # (Auto) 1.14 L (1.32-3.57) K/mm3 [place] # (Auto) 0.56 (0.30-0.82) K/mm3 Eos # (Auto) 0.33 (0.04-0.54) K/mm3 Baso # (Auto) 0.04 (0.01-0.08) K/mm3 Neutrophils % (Manual) (40-60) % Band Neutrophils % (0-10) % Lymphocytes % (Manual) (20-40) % Atypical Lymphs % % Monocytes % (Manual) (2-10) % Eosinophils % (Manual) (0.8-7.0) % Basophils % (Manual) (0.2-1.2) Platelet Estimate RBC Morph Comment PT (9.5-12.1) SECONDS INR Sodium 144 (136-145) mEq/L Potassium 3.9 (3.5-5.1) mEq/L Chloride 107 (98-107) mEq/L Carbon Dioxide 28 (21-32) mEq/L Anion Gap 12.9 (5-15) BUN 9 (7-18) mg/dL Creatinine 1.1 (0.7-1.3) mg/dL Est Cr Clr Drug Dosing 84.41 mL/min Estimated GFR (MDRD) > 60 (>60) mL/min BUN/Creatinine Ratio 8.2 L (14-18) Glucose 109 H (74-106) mg/dL Calcium 8.2 L (8.5-10.1) mg/dL Phosphorus 3.4 (2.6-4.7) mg/dL Magnesium 1.7 L (1.8-2.4) mg/dl Total Bilirubin 0.3 (0.2-1.0) mg/dL AST 18 (15-37) U/L ALT 28 (16-63) U/L Alkaline Phosphatase 73 (46-116) U/L Total Protein 6.4 (6.4-8.2) g/dl Albumin 3.0 L (3.4-5.0) g/dl Globulin 3.4 gm/dL Albumin/Globulin Ratio 0.9 L (1-2) Lipase (73-393) U/L TSH 3rd Generation (0.358-3.74) uIU/mL Urine Color (Yellow) Urine Appearance (Clear) Urine pH (5.0-8.0) Ur Specific [place] (1.005-1.030) Urine Protein (Negative) Urine Glucose (UA) (Negative) Urine Ketones (Negative) Urine Occult Blood (Negative) Urine Nitrite (Negative) Urine Bilirubin (Negative) Urine Urobilinogen (0.2-1.0) Ur Leukocyte Esterase (Negative) Urine RBC (0-5) /hpf Urine WBC (0-5) /hpf Ur Epithelial Cells (0-5) /hpf Urine Bacteria (FEW) /hpf Urine Mucus (FEW) /hpf Salicylates (2.8-20) mg/dL Urine Opiates Screen (NNFSLS=616) Ur Buprenorphine Scrn (CUTOFF=10) Ur Oxycodone Screen (GHG1SB=524) Urine Methadone Screen (YPN4DD=893) Ur Propoxyphene Screen (BJQKAT=654) Acetaminophen (10-30) ug/mL Ur Barbiturates Screen (ZIJACK=252) Ur Tricyclics Screen (TTFUEC=674) Ur Phencyclidine Scrn (CUTOFF=25) Ur Amphetamine Screen (GDMUHL=302) U Methamphetamines Scrn (USTIBI=986) U Benzodiazepines Scrn (KBMCTA=195) U Cocaine Metab Screen (XHMVAX=426) U Marijuana (THC) Screen (CUTOFF=50) Ethyl Alcohol (0.00) gm% Med Orders - Current: Current Medications Clonazepam (Klonopin) 0.5 mg PO BID [facility] Last Admin: 09/12/18 08:14 Dose: 0.5 mg Clonidine HCl (Catapres) 0.1 mg PO BEDTIME [facility] Last Admin: 09/11/18 20:15 Dose: 0.1 mg Duloxetine HCl (Cymbalta) 60 mg PO DAILY [facility] Last Admin: 09/12/18 08:14 Dose: 60 mg Enoxaparin Sodium (Lovenox) 40 mg SUBCUT DAILY [facility] Last Admin: 09/12/18 08:14 Dose: 40 mg Fluoxetine HCl (Prozac) 40 mg PO DAILY [facility] Last Admin: 09/12/18 08:14 Dose: 40 mg Dextrose/Sodium Chloride (Dextrose 5%-Normal Saline) 1,000 mls @ 125 mls/hr IV ASDIRECTED [facility] Last Admin: 09/12/18 04:43 Dose: 125 mls/hr Levothyroxine Sodium (Synthroid) 50 mcg PO ACBREAKFAST [facility] Last Admin: 09/12/18 05:23 Dose: 50 mcg Miscellaneous Information (Remove Patch) 1 ea TRDERM DAILY [facility] Last Admin: 09/12/18 08:17 Dose: 1 ea Nicotine (Habitrol) 21 mg TRDERM DAILY [facility] Last Admin: 09/12/18 08:14 Dose: 21 mg Olanzapine (Zyprexa) 30 mg PO BEDTIME [facility] Last Admin: 09/11/18 20:15 Dose: 30 mg Lurasidone Hcl [ (Latuda] 60 Mg) 0 each PO DAILY [facility] Last Admin: 09/12/18 08:22 Dose: Not Given Sodium Chloride (Saline Flush) 10 ml FLUSH ASDIRECTED PRN PRN Reason: Keep Vein Open Last Admin: 09/11/18 17:00 Dose: 10 ml Trazodone HCl (Trazodone) 150 mg PO BEDTIME [facility] Last Admin: 09/11/18 20:17 Dose: 150 mg Discontinued Medications Folic Acid (Folic Acid) 1 mg PO ONETIME ONE Stop: 09/11/18 16:54 Last Admin: 09/11/18 17:10 Dose: 1 mg Sodium Chloride (Normal Saline) 1,000 mls @ 250 mls/hr IV ASDIRECTED [facility] Last Admin: 09/11/18 17:10 Dose: 250 mls/hr Magnesium Sulfate 2 gm/ Premix 50 mls @ 25 mls/hr IV ONETIME ONE Stop: 09/12/18 09:17 Last Admin: 09/12/18 07:37 Dose: 25 mls/hr Nicotine (Habitrol) 21 mg TRDERM ONETIME ONE Stop: 09/11/18 18:08 Last Admin: 09/11/18 18:23 Dose: 21 mg Thiamine HCl (Vitamin B-1) 100 mg IVPUSH ONETIME ONE Stop: 09/11/18 16:54 Last Admin: 09/11/18 17:04 Dose: 100 mg - Exam Physical Findings Comments:: General: Alert, Oriented, Cooperative, Lethargic HEENT: Conjunctiva Clear, EOMI Neck: Supple, Trachea Midline Lungs: Clear to Auscultation, Normal Respiratory Effort Cardiovascular: Regular Rate, Regular Rhythm GI/Abdominal Exam: Soft, Non-Tender Extremities: Non-Tender, Pedal Edema Peripheral Pulses: 2+: Dorsalis Pedis (L), Dorsalis Pedis (R) Skin: Warm, Dry Neuro Extensive - Mental Status: No: Normal Cognition, Disorientation to Time, Inattentive Neuro Extensive - Motor, Sensory, Reflexes: CN II-XII Intact, Normal Gait. No: Motor/Sensory Deficits
== END 2018-09-12 13:14 | disposition home or self-care (01) | DRG 897 ==
LOC: SUPCPDRO 16:26 → EDBD 16:26 → JD.ED 16:26 → JD.ICU 18:16
PROVIDERS: ADMIT Internal Medicine; ATTEND Internal Medicine
DX: F10.129 Alcohol abuse with intoxication, unspecified (principal); F10.229 Alcohol dependence with intoxication, unspecified; Q87.40 Marfan syndrome, unspecified; F33.3 Major depressive disorder, recurrent, severe with psychotic symptoms; F20.9 Schizophrenia, unspecified; F17.210 Nicotine dependence, cigarettes, uncomplicated; F41.9 Anxiety disorder, unspecified; J43.9 Emphysema, unspecified; Z90.49 Acquired absence of other specified parts of digestive tract; Z79.899 Other long term (current) drug therapy; Z79.890 Hormone replacement therapy
CPT/HCPCS: 36415; 80053; 80306; 81001; 83690; 84443; 85007; 85027; 85610; 93005; 96361; 96374; 99285; A9270; G0480 ×3; J3411; J7040; 83735; 84100; 85025; J1650; J3475; J7042

== ENCOUNTER 2018-09-24 09:32 | Emergency (ER) | payer MEDICAID ==
[2018-09-24] MEDS ORDERED: Sodium Chloride 0.9% 10 ML Syringe FLUSH PRN (10:42)
[2018-09-24] MEDS ORDERED: Sodium Chloride 0.9% 1,000 ML IV ONE (10:42)
--- NOTE | 2018-09-24 13:47 | EDM.PDOCBH ---
ED HPI GENERAL MEDICAL PROBLEM - General Chief Complaint: Drug or Alcohol Abuse Stated Complaint: DETOX Time Seen by Provider: 09/24/18 10:20 Source of Information: Reports: Patient History Limitations: Reports: No Limitations - History of Present Illness INITIAL COMMENTS - FREE TEXT/NARRATIVE: The patient was sent over by [facility] for possible inpatient detox. The patient is an alcoholic and he went through detox earlier in the month. He was sober for a few days and he drank a 20 ounce beer last night. He has no nausea , vomiting, fever, chills, chest pain or shortness of breath. He does have an essential tremor that is chronic for him. Onset: Gradual Duration: Day(s): (last night) Severity: Moderate Improves with: Reports: None Worsens with: Reports: None Associated Symptoms: Reports: No Other Symptoms Neck Pain Score (Numeric/FACES): 4 - Related Data Allergies Allergy/AdvReac Type Severity Reaction Status Date / Time No Known Allergies Allergy Verified 09/24/18 10:28 Home Meds: Home Meds DULoxetine HCl [Cymbalta] 60 mg PO DAILY 09/11/18 [History] FLUoxetine HCl [Fluoxetine HCl] 40 mg PO DAILY 09/11/18 [History] Fenofibrate,Micronized [Fenofibrate] 134 mg PO DAILY 09/11/18 [History] Levothyroxine [Synthroid] 50 mcg PO DAILY 09/11/18 [History] Lurasidone HCl [Latuda] 60 mg PO DAILY 09/11/18 [History] Meloxicam [Mobic] 15 mg PO DAILY 09/11/18 [History] Naltrexone 50 mg PO DAILY 09/11/18 [History] OLANZapine [Olanzapine] 30 mg PO BEDTIME 09/11/18 [History] Omeprazole Magnesium [Prilosec Otc] 20 mg PO DAILY 09/11/18 [History] busPIRone [Buspar] 15 mg PO BID 09/11/18 [History] cloNIDine [Catapres] 0.1 mg PO BEDTIME 09/11/18 [History] traZODone HCl [Trazodone HCl] 200 mg PO BEDTIME 09/11/18 [History] Disulfiram 500 mg PO DAILY 09/24/18 [History] Past Medical History Respiratory History: Reports: Other (See Below) Other Respiratory History: emphysema Musculoskeletal History: Reports: Other (See Below) Other Musculoskeletal History: cervical neck surgery Psychiatric History: Reports: Anxiety, Depression - Past Surgical History GI Surgical History: Reports: Cholecystectomy Musculoskeletal Surgical History: Reports: Other (See Below) Other Musculoskeletal Surgeries/Procedures:: marfins syndrome Social & Family History - Family History Family Medical History: Noncontributory - Tobacco Use Smoking Status *Q: Current Every Day Smoker Years of Tobacco use: 30 Packs/Tins Daily: 1 - Caffeine Use Caffeine Use: Reports: Coffee, Soda - Recreational Drug Use Recreational Drug Use: No ED ROS GENERAL - Review of Systems Review Of Systems: See Below Constitutional: Reports: No Symptoms HEENT: Reports: No Symptoms Respiratory: Reports: No Symptoms Cardiovascular: Reports: No Symptoms Endocrine: Reports: No Symptoms GI/Abdominal: Reports: No Symptoms : Reports: No Symptoms ED EXAM, BEHAVIORAL HEALTH - Physical Exam Exam: See Below Exam Limited By: No Limitations General Appearance: Alert, No Apparent Distress Ears: Normal External Exam Nose: Normal Inspection Head: Atraumatic, Normocephalic Neck: Normal Inspection Respiratory/Chest: No Respiratory Distress, Lungs Clear, Normal Breath Sounds Cardiovascular: Regular Rate, Rhythm, No Edema, No Murmur GI/Abdominal: Soft, Non-Tender, No Organomegaly, No Mass Back Exam: Normal Inspection Extremities: Normal Inspection COURSE, BEHAVIORAL HEALTH COMP - Course Vital Signs: Last Vital Signs Temp 96 F 09/24/18 10:22 Pulse 90 09/24/18 10:22 Resp 16 09/24/18 10:22 BP 131/95 H 09/24/18 10:22 Pulse Ox 96 09/24/18 10:22 Orders, Labs, Meds: Active Orders 24 hr Category Date Time Status Peripheral IV Care [RC] . DIRECTED Care 09/24/18 10:42 Active Sodium Chloride 0.9% [Saline Flush] Med 09/24/18 10:42 Active 10 ml FLUSH ASDIRECTED PRN Peripheral IV Insertion Adult [OM.PC] Routine Oth 09/24/18 10:42 Ordered Medication Orders Sodium Chloride (Saline Flush) 10 ml FLUSH ASDIRECTED PRN PRN Reason: Keep Vein Open Laboratory Tests 09/24/18 09/24/18 09/24/18 Range/Units 10:55 10:55 10:55 WBC 7.74 (4.23-9.07) K/mm3 RBC 5.20 (4.63-6.08) M/mm3 Hgb 15.0 D (13.7-17.5) gm/L Hct 45.1 (40.1-51.0) % MCV 86.7 (79.0-92.2) fl MCH 28.8 (25.7-32.2) pg MCHC 33.3 (32.2-35.5) g/dl RDW Std Deviation 48.9 H (35.1-43.9) fL Plt Count 193 (163-337) K/mm3 MPV 11.7 (9.4-12.3) fl Neutrophils % (Manual) 73 H (40-60) % Band Neutrophils % 0 (0-10) % Lymphocytes % (Manual) 16 L (20-40) % Atypical Lymphs % 0 % Monocytes % (Manual) 10 (2-10) % Eosinophils % (Manual) 1 (0.8-7.0) % Basophils % (Manual) 0 L (0.2-1.2) Platelet Estimate Adequate RBC Morph Comment Normal Sodium 138 (136-145) mEq/L Potassium 4.4 (3.5-5.1) mEq/L Chloride 101 (98-107) mEq/L Carbon Dioxide 25 (21-32) mEq/L Anion Gap 16.4 H (5-15) BUN 19 H (7-18) mg/dL Creatinine 1.6 H (0.7-1.3) mg/dL Est Cr Clr Drug Dosing 56.77 mL/min Estimated GFR (MDRD) 46 (>60) mL/min BUN/Creatinine Ratio 11.9 L (14-18) Glucose 80 (74-106) mg/dL Calcium 8.9 (8.5-10.1) mg/dL Total Bilirubin 0.4 (0.2-1.0) mg/dL AST 19 (15-37) U/L ALT 25 (16-63) U/L Alkaline Phosphatase 99 (46-116) U/L Total Protein 7.8 (6.4-8.2) g/dl Albumin 3.9 (3.4-5.0) g/dl Globulin 3.9 gm/dL Albumin/Globulin Ratio 1.0 (1-2) Lipase 56 L (73-393) U/L Urine Opiates Screen Negative (GKQGQM=864) Ur Buprenorphine Scrn Negative (CUTOFF=10) Ur Oxycodone Screen Negative (VMN9KP=441) Urine Methadone Screen Negative (QNM6TB=367) Ur Propoxyphene Screen Negative (MXYDID=384) Ur Barbiturates Screen Negative (QERYNW=239) Ur Tricyclics Screen Negative (NFQRCU=124) Ur Phencyclidine Scrn Negative (CUTOFF=25) Ur Amphetamine Screen Negative (UCOXVZ=329) U Methamphetamines Scrn Negative (ODMUMQ=774) U Benzodiazepines Scrn Presumptive positive H (BXPRHP=113) U Cocaine Metab Screen Negative (BPZEKE=809) U Marijuana (THC) Screen Negative (CUTOFF=50) Ethyl Alcohol 0.00 (0.00) gm% Medications Generic Name Dose Route Start Last Admin Trade Name Freq PRN Reason Stop Dose Admin Sodium Chloride 10 ml 09/24/18 10:42 Saline Flush FLUSH ASDIRECTED PRN Keep Vein Open Discontinued Medications Generic Name Dose Route Start Last Admin Trade Name Freq PRN Reason Stop Dose Admin Sodium Chloride 1,000 mls @ 999 mls/hr 09/24/18 10:42 09/24/18 12:28 Normal Saline IV 09/24/18 11:42 Not Given ONETIME ONE Re-Assessment/Re-Exam: I ordered labs. His CBC was normal. His anion gap was elevated at 16.4. His lipase was normal. His UDS was positive for benzos. His ETOH was 0. I do not feel he needs inpatient detox. I will discharge him to home. Departure - Departure Time of Disposition: 13:50 Disposition: Home, Self-Care 01 Condition: Good Clinical Impression: Alcohol abuse - Discharge Information *PRESCRIPTION DRUG MONITORING PROGRAM REVIEWED*: Not Applicable *COPY OF PRESCRIPTION DRUG MONITORING REPORT IN PATIENT MIKY: Not Applicable Referrals: Dallin Lance Jr, MD [Primary Care Provider] - Additional Instructions: Do not drink alcohol. Follow up with [facility]. - My Orders Last 24 Hours: My Active Orders 09/24/18 10:42 Peripheral IV Care [RC] . DIRECTED Sodium Chloride 0.9% [Saline Flush] 10 ml FLUSH ASDIRECTED PRN Peripheral IV Insertion Adult [OM.PC] Routine - Assessment/Plan Last 24 Hours: My Active Orders 09/24/18 10:42 Peripheral IV Care [RC] . DIRECTED Sodium Chloride 0.9% [Saline Flush] 10 ml FLUSH ASDIRECTED PRN Peripheral IV Insertion Adult [OM.PC] Routine
== END 2018-09-24 13:58 | disposition home or self-care (01) ==
LOC: JD.ED 09:32
DX: F10.10 Alcohol abuse, uncomplicated (principal); F41.9 Anxiety disorder, unspecified; F32.9 Major depressive disorder, single episode, unspecified; F17.210 Nicotine dependence, cigarettes, uncomplicated; Z79.899 Other long term (current) drug therapy; Z90.49 Acquired absence of other specified parts of digestive tract
CPT/HCPCS: 36415; 80053; 80306; 83690; 85007; 85027; 99283; G0480